=== PATIENT | male | born 1980 | race Caucasian/White ===

== ENCOUNTER 2017-04-28 13:10 | Inpatient (IN) | payer SELFPAY ==
[~2017-04-28] VITALS: Ht 198.1 cm; Wt 98.0 kg
[2017-04-28 14:44] LABS: BASO % 0 % (0-3); EOS % 0 % (0-3); HEMOGLOBIN 13.3 g/dL (13.0-17.5); LYMPH # 0.3 x10^3/uL (1.0-4.8); LYMPH % 3 % (24-48); MEAN CORPUSCULAR HEMOGLOBIN 31 pg (25-35); MEAN CORPUSCULAR HGB CONC 34 g/dL (31-37); MEAN CORPUSCULAR VOLUME 90 fL (79-100); MONO # 0.6 x10^3/uL (0.0-1.1); MONO % 6 % (0-9); NEUT # 9.8 x10^3uL (1.8-7.7); NEUT % 91 % (31-73); PLATELET COUNT 138 x10^3/uL (140-400); RED BLOOD COUNT 4.33 x10^6/uL (4.30-5.70); RED CELL DISTRIBUTION WIDTH 15.6 % (11.5-14.5); WHITE BLOOD COUNT 10.8 x10^3/uL (4.0-11.0)
[2017-04-28 15:01] LABS: ALBUMIN 3.5 g/dL (3.4-5.0); CALCIUM 8.3 mg/dL (8.5-10.1); CREATININE 1.3 mg/dL (0.7-1.3); GFR 62.1; POTASSIUM 4.4 mmol/L (3.5-5.1); TOTAL BILIRUBIN 0.7 mg/dL (0.2-1.0); TOTAL PROTEIN 6.9 g/dL (6.4-8.2)
--- NOTE | 2017-04-28 15:03 | EKG ---
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
--- NOTE | 2017-04-28 15:26 | PHYS DOC ---
General Chief Complaint: ALTERED MENTAL STATUS Stated Complaint: ALTERED MENTAL STATUS Time Seen by MD: 13:19 Source: patient, EMS Exam Limitations: intoxication Problems: History of Present Illness Initial Comments Patient is a 36-year-old male brought to the ED by EMS with reported heroin overdose. EMS reports that the patient was "actively overdosing on heroin" when law enforcement was called. Upon arrival to the scene EMS gave 2 mg of Narcan due to shallow respirations. The patient reportedly immediately woke up and became very combative and EMS gave 5 mg of versed to calm the pt. Patient has been sedated since that time with stable vital signs. On ED arrival he was not arousable and it was determined that we will observe him to see if he woke up and was able to be discharged home. Patient reportedly has a history of hepatitis C, he is a cigarette smoker and heroin user no other history is known. Timing/Duration: 1/2 hour Severity: severe Modifying Factors: improves with other Associated Symptoms: denies symptoms Allergies: Coded Allergies: No Known Drug Allergies (Unverified , 04/28/17) Past Medical History Medical History: hepatitis Surgical History: no surgical history Social History Smoker: cigarettes Alcohol: other (unknown) Drugs: other (heroin) Review of Systems All Other Systems: Reviewed and Negative (review of systems unobtainable) Physical Exam General Appearance: no apparent distress (disheveled and sedated) Eyes: bilateral eye PERRL, bilateral eye EOMI, bilateral eye other (pupillary dilatation bilaterally) Ear, Nose, Throat: hearing grossly normal, normal ENT inspection, normal pharynx Neck: supple, normal inspection Respiratory: other (course breath sounds bilaterally with good air movement no respiratory distress) Cardiovascular: normal peripheral pulses, regular rate, rhythm Gastrointestinal: soft (nondistended, no apparent tenderness or palpable masses bowel sounds are normal) Back: no CVA tenderness, no vertebral tenderness Extremities: normal inspection, no pedal edema Neurologic/Psychiatric: other (moves all extremities with no apparent lateralizing neuro deficits, patient is sedated but arousable to audible stimuli , no focal neuro deficits as tested) Orders, Labs, Meds EKG: Normal sinus rhythm 73 bpm, PAC, prolonged QT at 442 ms no STEMI changes. Interpreted by Dr. Candelaria. 1610: I rechecked the patient he starting to wake up. He is arousable but followed back to sleep easily, anticipate she'll be able to go home we'll let him sleep it off a little longer. 1742: Repeated attempts to rouse pt, he wakes mumbles and falls back asleep. Won't answer questions. I advised him of need for inpatient treatment to follow CE, CK. 1742: I discussed pt with Dr Clark who accepts inpt/tele admission. trop I 0.021, platelets 138, BUN 32, creatinine 1.3, AST 507, ALT 435, CK 567 IMPRESSIONS: Heroin overdose Hypovolemia Hepatitis C with elevated LFTs Elevated CK Tobaccoism Departure Time of Disposition: 17:45 Disposition: 09 ADMITTED INPATIENT Diagnosis: heroin overdose, elevated CK, decreased mental sta Condition: GUARDED Additional Instructions: Inpatient telemetry admission for observation and to follow labs and hydration. Dr. Calrk is accepting ALEXANDER CANDELARIA DO Apr 28, 2017 15:26
[2017-04-28] MEDS ORDERED: IV NORMAL SALINE 1,000ML 1,000 ML ONE (16:07)
[2017-04-28] MEDS ORDERED: ONDANSETRON PF 4 MG/2 ML VIAL. IV PRN (18:00)
[2017-04-28] MEDS: IPRATRPIUM/ALBUTEROL 0.5/2.5MG 3 ML NEBU. NEB SCH (21:45)
--- NOTE | 2017-04-28 21:45 | NUR ---
Pt refuses breathing treatment. States, "I am breathing fine."
[2017-04-28 22:36] VITALS: BP 123/80
[2017-04-28] MEDS: IV NORMAL SALINE 1,000ML 1,000 ML IV SCH (22:42)
[2017-04-29 00:05] VITALS: BP 106/61
[2017-04-29] MEDS ORDERED: PNEUMOCOCCAL VAX SCREEN. MC PRN ×2 (02:00→02:30)
[2017-04-29] MEDS ORDERED: Influenza vaccine per PROTOCOL. MC PRN ×2 (02:00→02:30)
[2017-04-29 02:17] VITALS: BP 102/57
--- NOTE | 2017-04-29 03:22 | NUR ---
Dr. Clark notified of Tropoin increasing from 0.021 to 0.162. T.O. received to consult cariology in AM.
[2017-04-29] MEDS: IV NORMAL SALINE 1,000ML 1,000 ML IV SCH ×3 (03:47→13:57)
[2017-04-29] MEDS: IPRATRPIUM/ALBUTEROL 0.5/2.5MG 3 ML NEBU. NEB SCH ×3 (05:50→16:45)
[2017-04-29 06:18] VITALS: BP 102/59
[2017-04-29 06:28] LABS: AMPHETAMINE/METHAMPHETAMINE POS (NEG); BARBITURATES NEG (NEG); BENZODIAZEPINES POS (NEG); CANNABINOIDS NEG (NEG); COCAINE NEG (NEG); METHADONE NEG (NEG); OPIATES POS (NEG); PHENCYCLIDINE NEG (NEG)
[2017-04-29 08:29] LABS: BASO % 0 % (0-3); EOS # 0.1 x10^3/uL (0.0-0.7); EOS % 2 % (0-3); HEMATOCRIT 35.7 % (39.0-53.0); HEMOGLOBIN 12.3 g/dL (13.0-17.5); LYMPH # 1.1 x10^3/uL (1.0-4.8); LYMPH % 19 % (24-48); MEAN CORPUSCULAR HEMOGLOBIN 31 pg (25-35); MEAN CORPUSCULAR HGB CONC 34 g/dL (31-37); MEAN CORPUSCULAR VOLUME 90 fL (79-100); MONO # 0.3 x10^3/uL (0.0-1.1); MONO % 6 % (0-9); NEUT # 4.2 x10^3uL (1.8-7.7); NEUT % 73 % (31-73); PLATELET COUNT 135 x10^3/uL (140-400); RED BLOOD COUNT 3.99 x10^6/uL (4.30-5.70); RED CELL DISTRIBUTION WIDTH 15.4 % (11.5-14.5); WHITE BLOOD COUNT 5.7 x10^3/uL (4.0-11.0)
[2017-04-29 08:42] LABS: ALBUMIN 2.8 g/dL (3.4-5.0); CALCIUM 7.9 mg/dL (8.5-10.1); CREATININE 0.7 mg/dL (0.7-1.3); GFR 126.9; POTASSIUM 3.7 mmol/L (3.5-5.1); TOTAL BILIRUBIN 0.7 mg/dL (0.2-1.0); TOTAL PROTEIN 5.7 g/dL (6.4-8.2)
[2017-04-29] MEDS ORDERED: FLU VACC QS2017-18 (36MOS+)/PF 0.5 ML SYRINGE. VAX IM ONE (09:00)
[2017-04-29] MEDS ORDERED: PNEUMOC CONJ VACC 23-VALENT 0.5 ML VIAL. VAX IM ONE (09:00)
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
[2017-04-29 11:31] VITALS: BP 107/63
[2017-04-29] MEDS ORDERED: MELOXICAM 15 MG TABLET. PO SCH (14:00)
[2017-04-29 15:00] VITALS: BP 124/68
--- NOTE | 2017-04-29 15:55 | CARD ---
APPROVED REPORT EXAM: Two-dimensional and M-mode echocardiogram with Doppler and color Doppler. Other Information Quality : Average Rhythm : NSR INDICATION elevated troponin level heroin overdose 2D DIMENSIONS RVDd3.0 (2.9-3.5cm)Left Atrium(2D)2.8 (1.6-4.0cm) IVSd1.1 (0.7-1.1cm)Aortic Root(2D)3.0 (2.0-3.7cm) LVDd5.2 (3.9-5.9cm)LVOT Diameter2.3 (1.8-2.4cm) PWd1.1 (0.7-1.1cm)LVDs3.6 (2.5-4.0cm) FS (%) 27.1 %SV74.4 ml LVEF(%)54.0 (>50%) Aortic Valve AoV Peak Michael.134.4cm/sAoV VTI25.5cm AO Peak GR.7.2mmHgLVOT Peak Michael.118.2cm/s LVOT VTI 21.39cmAO Mean GR.4mmHg CORINE (VMAX)3.68nn5EBY (VTI)3.52cm2 Mitral Valve MV E Afknacob39.5cm/sMV DECEL TVOZ021zh MV A Trdtwruh35.4cm/sMV WJW40lt E/A Ratio1.5MV A Tmokgsys163ji MVA (PHT)3.90cm2 Tricuspid Valve TR P. Uoikgtre980bs/sRAP PXPYLGDZ36pnMu TR Peak Gr.11tpQgBGPB36cfHy LEFT VENTRICLE The left ventricle is normal size. There is normal left ventricular wall thickness. Left ventricle sy stolic function is mildly impaired. EF 50% There is normal LV segmental wall motion. The left ventric ular diastolic function and filling is normal for age. There is no ventricular septal defect visualiz ed. RIGHT VENTRICLE The right ventricle is normal size. The right ventricular systolic function is normal. ATRIA The left atrium size is normal. The right atrium size is normal. The interatrial septum is intact wit h no evidence for an atrial septal defect or patent foramen ovale as noted on 2-D or Doppler imaging. AORTIC VALVE The aortic valve is not well visualized. Doppler and Color Flow revealed no significant aortic regurg itation. There is no significant aortic valvular stenosis. MITRAL VALVE The mitral valve is normal in structure and function. There is no mitral valve stenosis. Doppler and Color Flow revealed trace mitral regurgitation. TRICUSPID VALVE The tricuspid valve is normal in structure and function. Doppler and Color Flow revealed trace tricus pid regurgitation. The PA pressure was estimated at 35 mmHg. There is no tricuspid valve stenosis. PULMONIC VALVE The pulmonic valve is not well visualized. Doppler and Color Flow revealed no pulmonic valvular regur gitation. There is no pulmonic valvular stenosis. GREAT VESSELS The aortic root is normal in size. The ascending aorta is normal in size. The IVC is dilated and [place] apses <50% with inspiration. PERICARDIAL EFFUSION There is no evidence of significant pericardial effusion. Critical Notification Critical Value: No <Conclusion> Left ventricle systolic function is mildly impaired. EF 50% There is normal LV segmental wall motion. The IVC is dilated and collapses <50% with inspiration.
[2017-04-29 17:00] VITALS: BP 121/66
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
--- NOTE | 2017-04-29 19:05 | NUR ---
This nurse in room with pt. Pt talking on phone sitting on the edge of his bed. Denies needs at this time.
--- NOTE | 2017-04-29 19:26 | NUR ---
Pt found by security walking downhill. Security came up to asking if we had someone leave AMA. Staff noticed that Pt was missing, IV catheter found hanging from tubing, all belongings gone. Security went to see if he could find him on the property, no signs of the pt.
--- NOTE | 2017-04-30 22:50 | DS ---
DATE OF DISCHARGE: 04/29/2017 HOSPITAL COURSE: The patient was seen on 04/29/2017 and history and physical was done. He did have somewhat of marginally abnormal echocardiogram and wanted to get a Cardiology consult on him. However, in the evening of 04/29/2017, the patient took out his own IV and left without letting anyone know. We were not able to contact him on the grounds and he left without a letting anybody know. STEFAN FERNANDEZ DO DR: JIMENA/tiana JOB#: [id number] / [id number]
== END 2017-04-29 19:25 | disposition left against medical advice (07) | DRG 918 ==
LOC: ER 13:10 → 1 SOUTH 17:54 → ER 19:05
PROVIDERS: ADMIT Internal Medicine; ATTEND Internal Medicine
DX: T40.1X1A Poisoning by heroin, accidental (unintentional), initial encounter (principal); E44.0 Moderate protein-calorie malnutrition; I24.8 Other forms of acute ischemic heart disease; F11.10 Opioid abuse, uncomplicated; E86.1 Hypovolemia; B19.20 Unspecified viral hepatitis C without hepatic coma; Z53.21 Procedure and treatment not carried out due to patient leaving prior to being seen by health care provider; F17.210 Nicotine dependence, cigarettes, uncomplicated; F15.90 Other stimulant use, unspecified, uncomplicated; Z68.25 Body mass index [BMI] 25.0-25.9, adult; Z59.0 Homelessness; Z90.49 Acquired absence of other specified parts of digestive tract; Z90.2 Acquired absence of lung [part of]
CPT/HCPCS: 36415; 80053; 80307; 82550; 84484; 85025; 90686; 90732; 93005; 93306; 94250; 94640; J7620; 99285-25; G0479; J7030

== ENCOUNTER 2019-05-16 15:48 | Emergency (ER) | payer SELFPAY ==
[2019-05-16 15:58] VITALS: BP 140/90
[2019-05-16] MEDS ORDERED: MELO7.5T29 PO (16:16)
[2019-05-16] MEDS ORDERED: HYDR-3165 PO (16:16)
[2019-05-16] MEDS ORDERED: AMOX500T PO (16:16)
--- NOTE | 2019-05-16 16:17 | PHYS DOC ---
Past History Past Medical History: No Pertinent History Past Surgical History: No Surgical History Alcohol Use: None Drug Use: Marijuana Adult General Chief Complaint Chief Complaint: DENTAL PROBLEM HPI HPI Patient is a 38-year-old male presents with left lower dental pain. 2 days ago patient was chewing crunchy food and broke part of his tooth off. There is increased sensitivity to cold. No significant relief with close boil. No fever. No foul taste in the mouth. Pain is moderate to severe. No radiation of the discomfort.[] Review of Systems Review of Systems Constitutional: Denies fever or chills [] Eyes: Denies change in visual acuity, redness, or eye pain [] HENT: Denies nasal congestion or sore throat, see history of present illness [] Respiratory: Denies cough or shortness of breath [] Cardiovascular: No chest pain or palpitations[] GI: Denies abdominal pain, nausea, vomiting, bloody stools or diarrhea [] : Denies dysuria or hematuria [] Musculoskeletal: Denies back pain or joint pain [] Integument: Denies rash or skin lesions [] Neurologic: Denies headache, focal weakness or sensory changes [] Endocrine: Denies polyuria or polydipsia [] All other systems were reviewed and found to be within normal limits, except as documented in this note. Allergies Allergies Allergies Coded Allergies Type Severity Reaction Last Updated Verified No Known Drug Allergies 04/28/17 No Physical Exam Physical Exam Constitutional: Well developed, well nourished, no acute distress, non-toxic appearance. [] HENT: Normocephalic, atraumatic, bilateral external ears normal, oropharynx moist, no oral exudates, nose normal. Tooth #18 has the posterior buccal surface proximally one quarter of the tooth missing. There is no drainable abscess present. There is tenderness to percussion. No significant gingival erythema or edema. [] Eyes: PERRLA, EOMI, conjunctiva normal, no discharge. [] Neck: Normal range of motion, no tenderness, supple, no stridor. [] Cardiovascular:Heart rate regular rhythm, no murmur [] Lungs & Thorax: Bilateral breath sounds clear to auscultation [] Abdomen: Not examined. [] Skin: Warm, dry, no erythema, no rash. [] Back: No tenderness, no CVA tenderness. [] Extremities: No tenderness, no cyanosis, no clubbing, ROM intact, no edema. [] Neurologic: Alert and oriented X 3, normal motor function, normal sensory function, no focal deficits noted. [] Psychologic: Affect normal, judgement normal, mood normal. [] Current Patient Data Vital Signs Vital Signs Date Time Temp Pulse Resp B/P (MAP) Pulse Ox O2 Delivery O2 Flow Rate FiO2 05/16/19 15:58 98.3 82 18 98 Room Air EKG EKG [] Radiology/Procedures Radiology/Procedures [] Course & Med Decision Making Course & Med Decision Making Pertinent Labs and Imaging studies reviewed. (See chart for details) ED course: Patient arrived, was placed in bed, and tolerated exam well. Findings were and plan were discussed with the patient voiced understanding. All questions were answered. He was discharged in improved condition. Medical decision making: Patient has a fractured posterior portion of tooth #18. No evidence of a drainable abscess. No evidence of Chau angina. No evidence of airway or esophageal compromise.[] Dragon Disclaimer Dragon Disclaimer This electronic medical record was generated, in whole or in part, using a voice recognition dictation system. Departure Departure: Impression: Primary Impression: Tooth fracture Disposition: HOME, SELF-CARE Condition: IMPROVED Referrals: PCP,VARUN (PCP) Patient Instructions: Tooth Fracture Additional Instructions: Follow-up with your dentist in 2 days. If you do not have of local dentist a list of clinics will be provided. Return to the ER if worsening pain or any other concerns. Scripts Hydrocodone Bit/Acetaminophen (NORCO 5-325 TABLET) 1 Each Tablet 1 TAB PO Q4-6HRS for severe pain, #12 TAB Prov: CALEB ACOSTA DO 05/16/19 Meloxicam (MELOXICAM) 7.5 Mg Tablet 7.5 MG PO DAILY for PAIN, #20 TAB Prov: CALEB ACOSTA DO 05/16/19 Amoxicillin (AMOXICILLIN) 500 Mg Tablet 500 MG PO TID for dental fracture for 10 Days, #30 TAB Prov: CALEB ACOSTA DO 05/16/19 Problem Qualifiers Primary Impression: Tooth fracture Encounter type: initial encounter Fracture type: closed Qualified Codes: S02.5XXA - Fracture of tooth (traumatic), initial encounter for closed fracture CALEB ACOSTA DO May 16, 2019 16:17
== END 2019-05-16 16:21 | disposition home or self-care (01) ==
LOC: ER 15:48
DX: S02.5XXA Fracture of tooth (traumatic), initial encounter for closed fracture (principal); X58.XXXA Exposure to other specified factors, initial encounter; Y93.89 Activity, other specified; Y92.89 Other specified places as the place of occurrence of the external cause; Y99.8 Other external cause status
CPT/HCPCS: 99283

== ENCOUNTER 2021-10-04 08:45 | Emergency (ER) | payer SELFPAY ==
[~2021-10-04] VITALS: Ht 198.1 cm; Wt 104.5 kg
[~2021-10-04 08:45] MED LIST: AMOX500T PO; HYDR-3165 PO; MELO7.5T29 PO
[2021-10-04 08:54] VITALS: BP 140/67
[2021-10-04] MEDS ORDERED: CEPH500C PO (10:24)
--- NOTE | 2021-10-04 10:25 | PHYS DOC ---
Past History Past Medical History: No Pertinent History Past Surgical History: Other Additional Past Surgical Histo: R clavicle, R lung Alcohol Use: None Drug Use: Marijuana General Adult EDM: Chief Complaint: SKIN RASH/ABSCESS HPI: HPI: Patient is a 41-year-old male who presents today with left lower leg swelling and redness. Patient states the area started as a quarter size reddened raised area about 2 to 3 days ago, he put a umer around the area and he says over the last 2 days it has grown and has spread down to his ankle area. Patient does not recall an injury, bite, or any other break in the skin which would cause the redness. Patient denies fever, chills, chest pain, or shortness of breath. Review of Systems: Review of Systems: Constitutional: Denies fever or chills Eyes: Denies change in visual acuity HENT: Denies nasal congestion or sore throat Respiratory: Denies cough or shortness of breath Cardiovascular: Denies chest pain or edema GI: Denies abdominal pain, nausea, vomiting, bloody stools or diarrhea : Denies dysuria Musculoskeletal: Denies back pain or joint pain Integument: Red and swollen left lower leg Neurologic: Denies headache, focal weakness or sensory changes Endocrine: Denies polyuria or polydipsia Lymphatic: Denies swollen glands Psychiatric: Denies depression or anxiety Allergies: Allergies: Allergies Coded Allergies Type Severity Reaction Last Updated Verified No Known Drug Allergies 04/28/17 No Physical Exam: PE: Constitutional: Well developed, well nourished, no acute distress, non-toxic appearance. [] HENT: Normocephalic, atraumatic, bilateral external ears normal, oropharynx moist, no oral exudates, nose normal. [] Eyes: PERRLA, EOMI, conjunctiva normal, no discharge. [] Neck: Normal range of motion, no tenderness, supple, no stridor. [] Cardiovascular:Heart rate regular rhythm, no murmur [] Lungs & Thorax: Bilateral breath sounds clear to auscultation [] Abdomen: Bowel sounds normal, soft, no tenderness, no masses, no pulsatile masses. [] Skin: Reddened and swollen and warm area noted to the left lower leg on the inner aspect of the lower leg streaking down towards the ankle, pedal pulse is 2+ cap refill in the foot is less than 2 seconds motor is intact, sensory is intact. Back: No tenderness, no CVA tenderness. [] Extremities: Left lower leg tender to touch, 2+ pedal pulses cap refills less than 2 seconds motor and sensory is intact distal to the reddened area. Neurologic: Alert and oriented X 3, normal motor function, normal sensory function, no focal deficits noted. [] Psychologic: Affect normal, judgement normal, mood normal. [] Current Patient Data: Vital Signs: Vital Signs Date Time Temp Pulse Resp B/P (MAP) Pulse Ox O2 Delivery O2 Flow Rate FiO2 10/04/21 08:54 96.3 88 16 140/67 (91) 99 Room Air EKG: EKG: [] Radiology/Procedures: Radiology/Procedures: [] Heart Score: C/O Chest Pain: N/A Risk Factors: Risk Factors: DM, Current or recent (<one month) smoker, HTN, HLP, family history of CAD, obesity. Risk Scores: Score 0 - 3: 2.5% MACE over next 6 weeks - Discharge Home Score 4 - 6: 20.3% MACE over next 6 weeks - Admit for Clinical Observation Score 7 - 10: 72.7% MACE over next 6 weeks - Early Invasive Strategies Course & Med Decision Making: Course & Med Decision Making Pertinent Labs and Imaging studies reviewed. (See chart for details) Patient is alert and orientated does not appear toxic, patient does have a past medical history of having cellulitis in the past and he said that it did resolve with oral antibiotics. Will place patient on oral antibiotic for cellulitis and give the patient a resource for follow-up because he states he does not have a primary care physician. We will also update his tetanus because he is unsure if this is due to an injury or not. Patient verbalizes understanding of this and is agreeable to the plan of care. Emanuel Disclaimer: Emanuel Disclaimer: This electronic medical record was generated, in whole or in part, using a voice recognition dictation system. Departure Departure: Impression: Primary Impression: Cellulitis and abscess of left lower extremity Disposition: HOME / SELF CARE / HOMELESS Condition: STABLE Referrals: PCP,VARUN (PCP) Patient Instructions: Cellulitis Additional Instructions: Keflex 500 mg every 6 hours as needed for 10 days Tylenol and/or ibuprofen as needed for pain Return to the emergency department if you develop a fever, swelling and reddened worsens while on antibiotics, you are unable to tolerate antibiotics Follow-up with the clinic listed on the resource sheet or your primary care physician in 7 days if no better. Scripts Cephalexin (KEFLEX) 500 Mg Capsule 1 CAP PO QID for cellulitis, #40 CAP Prov: RYLEE SALCEDO APRN 10/04/21 RYLEE SALCEDO APRN Oct 04, 2021 10:25
== END 2021-10-04 10:31 | disposition home or self-care (01) ==
LOC: ER 08:45
DX: L02.416 Cutaneous abscess of left lower limb (principal); L03.116 Cellulitis of left lower limb
CPT/HCPCS: 99283

== ENCOUNTER 2021-12-14 22:57 | Emergency (ER) | payer SELFPAY ==
[~2021-12-14] VITALS: Ht 195.6 cm; Wt 106.1 kg
[~2021-12-14 22:57] MED LIST changes: +CEPH500C PO
[2021-12-14 23:10] VITALS: BP 127/76
--- NOTE | 2021-12-14 23:12 | PHYS DOC ---
Past History Past Medical History: No Pertinent History Past Surgical History: Other Additional Past Surgical Histo: R clavicle, R lung Alcohol Use: None Drug Use: Marijuana General Adult EDM: Chief Complaint: SKIN PROBLEM HPI: HPI: Patient is a 41-year-old male who is here with report of possible poison [place] rash. He has a rash on both of his forearms and his lower abdomen. He was clearing brush yesterday. He has had similar rash in the past with poison [place] exposure. He denies facial oral swelling, denies difficulty breathing. He has used calamine lotion. He has not taken any other medication to help with itching symptoms. He denies any pain. No other topical or systemic exposures reported. No other complaints. Review of Systems: Review of Systems: Constitutional: Denies fever or chills Eyes: Denies change in visual acuity HENT: Denies nasal congestion or sore throat Respiratory: Denies cough or shortness of breath Cardiovascular: Denies chest pain or edema GI: Denies abdominal pain, nausea, vomiting Musculoskeletal: Denies back pain or joint pain Integument: Pruritic rash bilateral forearms and lower abdomen, near beltline Neurologic: Denies headache, focal weakness or sensory changes Psychiatric: Denies depression or anxiety Allergies: Allergies: Allergies Coded Allergies Type Severity Reaction Last Updated Verified No Known Drug Allergies 04/28/17 No Physical Exam: PE: Constitutional: Well developed, well nourished, no acute distress, non-toxic appearance. [] HENT: Normocephalic, atraumatic, oropharynx is patent and clear, no facial or oral swelling. Mucous membranes are moist Eyes: Clear anicteric, conjunctive are normal, no periorbital edema Neck: Normal range of motion, no tenderness, supple, no stridor. [] Cardiovascular:Heart rate regular rhythm Lungs & Thorax: Bilateral breath sounds clear to auscultation, no rales, rho nchi or wheezes. No stridor. No distress. Abdomen: Bowel sounds normal, soft, no tenderness, no masses, no pulsatile masses. [] Skin: There is a scaly, excoriated rash with scattered micropapules on volar bilateral forearms, more prominent on the antecubital fossae. There is a more subtle appearing similar rash on the lower abdomen, near the belt line. No palmar lesions. No papules, pustules, vesicles. No dermatomal pattern. No open wounds. No bleeding. No warmth or erythema. Back: No tenderness, no CVA tenderness. Full range of motion. Extremities: No tenderness, no cyanosis, no clubbing, ROM intact, no edema. [] Neurologic: Alert and oriented X 3, normal motor function, normal sensory function, no focal deficits noted. [] Psychologic: Affect normal, judgement normal, mood normal. [] EKG: EKG: [] Radiology/Procedures: Radiology/Procedures: [] Heart Score: C/O Chest Pain: No Risk Factors: Risk Factors: DM, Current or recent (<one month) smoker, HTN, HLP, family history of CAD, obesity. Risk Scores: Score 0 - 3: 2.5% MACE over next 6 weeks - Discharge Home Score 4 - 6: 20.3% MACE over next 6 weeks - Admit for Clinical Observation Score 7 - 10: 72.7% MACE over next 6 weeks - Early Invasive Strategies Course & Med Decision Making: Course & Med Decision Making Pertinent Labs and Imaging studies reviewed. (See chart for details) I discussed the findings, differential diagnosis and plan of care with the patient. He drove here, so no sedating medications could be given. He is given a first dose of oral prednisone. I discussed home care instructions with him. Findings are most consistent with contact dermatitis, possibly related to exposure while clearing brush recently. No indication for laboratory exams or imaging at this time. He manifests no evidence of respiratory distress or anaphylaxis. Return precautions are given. He verbalizes understanding. Emanuel Disclaimer: Emanuel Disclaimer: This electronic medical record was generated, in whole or in part, using a voice recognition dictation system. Departure Departure: Impression: Primary Impression: Contact dermatitis Qualified Codes: L25.9 - Unspecified contact dermatitis, unspecified cause Disposition: HOME / SELF CARE / HOMELESS Condition: STABLE Referrals: PCP,VARUN (PCP) Patient Instructions: Contact Dermatitis Additional Instructions: Take the medication as needed/as directed. You may apply ice packs to help with itching. Return for facial or oral swelling, throat swelling, difficulty breathing, wheezing or for any other concerns. Also, avoid excessive scratching, so as to avoid secondary skin infection. Follow-up with your primar y care doctor. Scripts Prednisone (PREDNISONE) 10 Mg Tablet 1 EA PO DAILY for contact dermatitis, #44 TAB 5 tab po daily x 4 days, then 4 tab po daily x 3 days, then 3 tab po daily x 3 days, then 2 tab po daily x 2 days, then 1 tab po daily x 2 days, then stop; take with food Prov: ABDIEL HEREDIA DO 12/14/21 Diphenhydramine Hcl (BENADRYL) 25 Mg Capsule 1 CAP PO PRN Q6-8HRS PRN for ITCHING, #20 CAP 0 Refills Prov: ABDIEL HEREDIA DO 12/14/21 Triamcinolone Acetonide (TRIAMCINOLONE ACETONIDE 0.5% CREAM) 15 Gm Cream..g. 1 PAM TP BID for contact dermatitis, #60 GM Prov: ABDIEL HEREDIA DO 12/14/21 ABDIEL HEREDIA DO December 14, 2021 23:12
[2021-12-14] MEDS ORDERED: TRIA15CR50 TP (23:22)
[2021-12-14] MEDS ORDERED: PRED-220 PO (23:22)
[2021-12-14] MEDS ORDERED: DIPH25CA58 PO (23:22)
[2021-12-14] MEDS ORDERED: predniSONE 10 MG TABLET. PO ONE (23:45)
== END 2021-12-14 23:29 | disposition home or self-care (01) ==
LOC: ER 22:57
DX: L25.9 Unspecified contact dermatitis, unspecified cause (principal)
CPT/HCPCS: 99283; J7512